=== PATIENT | male | born 1985 | race Two or more races ===

== ENCOUNTER 2020-10-11 17:01 | Emergency (ER) | payer MEDICAID, OTHER ==
[~2020-10-11] VITALS: Ht 180.3 cm; Wt 65.8 kg
[2020-10-11 18:59] VITALS: BP 113/81
[2020-10-11] MEDS ORDERED: PENICILLIN G BENZ 1200000 UNITS/2 ML SYRG IM ONE (21:00)
== END 2020-10-11 21:04 | disposition home or self-care (01) ==
LOC: ER 17:01
DX: Z20.2 Contact with and (suspected) exposure to infections with a predominantly sexual mode of transmission (principal)
CPT/HCPCS: 81002; 96372; 99283; J0561